=== PATIENT | male | born 1980 | race Caucasian/White ===

== ENCOUNTER → 2016-02-12 | Outpatient (REF) | payer BC | LOC: M LAB REF 18:05 | PROVIDERS: ATTEND Surgery | DX: L72.3 Sebaceous cyst (principal) ==

== ENCOUNTER 2016-07-22 09:48 | Emergency (ER) | payer OTHER, BC ==
[~2016-07-22] VITALS: Ht 177.8 cm; Wt 80.0 kg
[2016-07-22] MEDS ORDERED: IBUP600T26 PO (09:58)
[2016-07-22] MEDS ORDERED: NAPR500T PO (12:35)
[2016-07-22] MEDS ORDERED: CYCL10TA PO (12:37)
--- NOTE | 2016-07-22 12:44 | REP ---
RIGHT SHOULDER, THREE VIEWS: HISTORY: Pain. There is no acute fracture or dislocation. The joint spaces are normal in appearance. IMPRESSION: There is no acute fracture or dislocation. Signed by Mayur Alfonso MD 07/22/2016 12:46 P
[2016-07-22 12:49] VITALS: BP 133/74
== END 2016-07-22 12:50 | disposition home or self-care (01) ==
LOC: M ED 10:55
DX: S46.811A Strain of other muscles, fascia and tendons at shoulder and upper arm level, right arm, initial encounter (principal); X50.0XXA Overexertion from strenuous movement or load, initial encounter; Y92.9 Unspecified place or not applicable; Y93.89 Activity, other specified; Y99.0 Civilian activity done for income or pay; F17.200 Nicotine dependence, unspecified, uncomplicated; Z90.89 Acquired absence of other organs

== ENCOUNTER → 2018-12-24 | Outpatient (REF) | payer BC ==
[~2018-12-24] MED LIST: CYCL10TA PO; IBUP-1022 PO; NAPR-837 PO
== END ==
LOC: M SMT 13:13
PROVIDERS: ATTEND Urology
DX: Z31.41 Encounter for fertility testing (principal)

== ENCOUNTER → 2019-12-26 | Outpatient (CLI) | payer BC ==
[~2019-12-26] MED LIST changes: +CYCL-707 PO; -CYCL10TA PO
== END ==
LOC: M OUTALCOH 09:00
PROVIDERS: ATTEND Psychiatry & Neurology Addiction Medicine
DX: F10.20 Alcohol dependence, uncomplicated (principal)